=== PATIENT | female | born 1935 | race Two or more races ===

== ENCOUNTER 2020-09-16 13:57 | Inpatient (IN) | payer OTHER ==
[~2020-09-16] VITALS: Ht 304.8 cm; Wt 78.0 kg
[~2020-09-16 13:57] MED LIST: ATOR20TA PO; HYDR-3547 OR; LEVO25TA49 PO; PANT40TA2 PO; RANI-435 PO
[2020-09-16] MEDS ORDERED: MORPHINE SULF INJ 2 MG/ML SYRINGE 1ML IV ONE (14:30)
[2020-09-16] MEDS ORDERED: ONDANSETRON HCL 4 MG/2 ML VIAL IV ONE (14:30)
[2020-09-16 14:37] LABS: Basophils # (auto) 0 10 ^3/uL (0-0.2); Basophils % (auto) 0.9 % (0.0-2.0); Eosinophils # (auto) 0.1 10 ^3/uL (0-0.8); Eosinophils % (auto) 1.6 % (0.0-7.0); Hematocrit 37.8 % (36.0-46.0); Hemoglobin 13.1 g/dL (12.2-16.2); Lymphocytes # (auto) 2.5 10 ^3/uL (0.4-5.4); Lymphocytes % (auto) 46.8 % (10.0-50.0); Mean Corpuscular Hgb Conc. 34.6 g/dL (32.0-36.0); Mean Corpuscular Volume 92.5 fL (80.0-100.0); Monocytes # (auto) 0.4 10 ^3/uL (0-1.3); Neutrophils # (auto) 2.3 10 ^3/uL (1.6-8.6); Neutrophils % (auto) 43.7 % (37.0-80.0); Nucleated Red Blood Cells % 0.1 %; Platelet Count (auto) 168 10^3/uL (140-450); Red Blood Cells 4.08 10^6/uL (4.0-5.20); Red Cell Distribution Width 14.1 % (11.8-14.3); White Blood Cell 5.3 10^3/uL (4.4-10.8)
[2020-09-16 15:10] LABS: Albumin 3.8 g/dL (3.4-5.0); Anion Gap 6 (5-15); Blood Urea Nitrogen 16 mg/dL (7-18); Carbon Dioxide 27 mmol/L (21-32); Chloride 108 mmol/L (98-107); Glucose 106 mg/dL (74-106); Magnesium 2.3 mg/dL (1.6-2.6); Potassium 3.5 mmol/L (3.5-5.1); Sodium 141 mmol/L (136-145)
[2020-09-16 15:16] LABS: Alanine Aminotransferase 19 U/L (13-56); Alkaline Phosphatase 65 U/L (45-117); Aspartate Aminotransferase 14 U/L (15-37); Bilirubin, Total 0.4 mg/dL (0.2-1.0); GFR African American 88 mL/min; GFR Non-African American 73 mL/min; Total Protein 7.5 g/dL (6.4-8.2)
[2020-09-16] MEDS ORDERED: MORPHINE SULFATE 4 MG/ML SYR/VIAL IV ONE (15:45)
[2020-09-16] MEDS ORDERED: hydrALAZINE HCL 20 MG/ML VL IV PRN (17:15)
[2020-09-16] MEDS ORDERED: MORPHINE SULF INJ 2 MG/ML SYRINGE 1ML IV PRN (17:15)
[2020-09-16] MEDS ORDERED: TETANUS-DIPTH-ACEL PERTUSSIS 0.5ML SYR Tdap IM ONE (17:15)
[2020-09-16] MEDS ORDERED: LORazepam 0.5 MG TAB PO PRN (17:15)
[2020-09-16] MEDS ORDERED: DOCUSATE CALCIUM 240 MG CAP PO PRN (17:15)
[2020-09-16] MEDS ORDERED: ONDANSETRON HCL 4 MG/2 ML VIAL IV PRN (17:15)
[2020-09-16] MEDS ORDERED: NITROGLYCERIN 0.4 MG SL TAB SL PRN (17:15)
[2020-09-16] MEDS ORDERED: ACETAMINOPHEN 500 MG TAB PO PRN (17:15)
[2020-09-16 20:15] VITALS: BP 148/75
[2020-09-16] MEDS: MORPHINE SULF INJ 2 MG/ML SYRINGE 1ML IV PRN (20:54)
[2020-09-16 21:58] VITALS: BP 148/75
[2020-09-16 22:08] LABS: Urine Bacteria FEW /hpf (None Seen); Urine Blood Negative /uL (Negative); Urine Mucus FEW (None Seen); Urine Specific Gravity 1.019 (1.001-1.035); Urine WBC 10 /hpf (0 - 5)
[2020-09-17 04:56] VITALS: BP 120/81
[2020-09-17] MEDS: MORPHINE SULF INJ 2 MG/ML SYRINGE 1ML IV PRN ×4 (05:02→23:00)
[2020-09-17 05:45] LABS: Basophils # (auto) 0 10 ^3/uL (0-0.2); Basophils % (auto) 0.7 % (0.0-2.0); Eosinophils # (auto) 0 10 ^3/uL (0-0.8); Eosinophils % (auto) 0.3 % (0.0-7.0); Hematocrit 35.7 % (36.0-46.0); Hemoglobin 12.4 g/dL (12.2-16.2); Lymphocytes # (auto) 1.2 10 ^3/uL (0.4-5.4); Lymphocytes % (auto) 20.2 % (10.0-50.0); Mean Corpuscular Hemoglobin 31.8 pg (28.0-32.0); Mean Corpuscular Hgb Conc. 34.7 g/dL (32.0-36.0); Mean Corpuscular Volume 91.4 fL (80.0-100.0); Monocytes # (auto) 0.5 10 ^3/uL (0-1.3); Monocytes % (auto) 8.4 % (0.0-12.0); Neutrophils # (auto) 4.3 10 ^3/uL (1.6-8.6); Neutrophils % (auto) 70.4 % (37.0-80.0); Nucleated Red Blood Cells % 0.1 %; Platelet Count (auto) 166 10^3/uL (140-450); Red Blood Cells 3.91 10^6/uL (4.0-5.20); Red Cell Distribution Width 13.9 % (11.8-14.3); White Blood Cell 6.1 10^3/uL (4.4-10.8)
[2020-09-17 05:53] LABS: INR 0.98 (0.9-1.15)
[2020-09-17 06:06] LABS: Albumin 3.7 g/dL (3.4-5.0); BUN/Creatinine Ratio 16.2; Calcium 8.7 mg/dL (8.5-10.1)
[2020-09-17 06:15] LABS: Bilirubin, Total 0.6 mg/dL (0.2-1.0); Total Protein 7.1 g/dL (6.4-8.2)
[2020-09-17 09:00] VITALS: BP 108/65
[2020-09-17] MEDS ORDERED: PANTOPRAZOLE 40 MG TAB PO SCH (10:00)
[2020-09-17] MEDS ORDERED: ENOXAPARIN SOD 40 MG/0.4 ML SYRINGE SC SCH (10:00)
[2020-09-17] MEDS ORDERED: HYDROcodone-ACET 5/325MG TAB PO PRN (12:00)
[2020-09-17 13:00] VITALS: BP 117/68
[2020-09-17] MEDS ORDERED: HYDROcodone-ACET 10/325MG TAB PO PRN ×2 (13:30→13:45)
[2020-09-17 17:00] VITALS: BP 141/74
[2020-09-17 22:00] VITALS: BP 142/73
== END 2020-09-18 01:45 | DRG 563 ==
LOC: ER 13:57 → OVERFLOW 17:35 → EAST 20:03 → WEST WING 09-17 05:30
PROVIDERS: ADMIT Family Medicine; ATTEND Internal Medicine
DX: S42.251A Displaced fracture of greater tuberosity of right humerus, initial encounter for closed fracture (principal); Z20.822 Contact with and (suspected) exposure to COVID-19; Y93.01 Activity, walking, marching and hiking; K21.9 Gastro-esophageal reflux disease without esophagitis; E03.9 Hypothyroidism, unspecified; G89.29 Other chronic pain; M54.5 Low back pain; E78.5 Hyperlipidemia, unspecified; W01.0XXA Fall on same level from slipping, tripping and stumbling without subsequent striking against object, initial encounter; K59.00 Constipation, unspecified; G47.00 Insomnia, unspecified; S80.02XA Contusion of left knee, initial encounter; Y92.89 Other specified places as the place of occurrence of the external cause; Y99.8 Other external cause status; Z88.5 Allergy status to narcotic agent; Z88.0 Allergy status to penicillin; Z85.828 Personal history of other malignant neoplasm of skin; Z90.49 Acquired absence of other specified parts of digestive tract; Z79.899 Other long term (current) drug therapy; Z23 Encounter for immunization
CPT/HCPCS: 36415; 73030; 73200; 73562; 80053; 81001; 83735; 84443; 84484; 85025; 85610; 87426; 90471; 90715; 93005; 96374; 96375; 96376; 97163; G0378; J2405

== ENCOUNTER 2020-10-15 20:29 | Inpatient (IN) | payer OTHER ==
[~2020-10-15] VITALS: Ht 152.4 cm; Wt 77.1 kg
[2020-10-15 21:36] LABS: Hematocrit 38.1 % (36.0-46.0); Hemoglobin 12.7 g/dL (12.2-16.2); Mean Corpuscular Hemoglobin 30.4 pg (28.0-32.0); Mean Corpuscular Hgb Conc. 33.3 g/dL (32.0-36.0); Mean Corpuscular Volume 91.3 fL (80.0-100.0); Platelet Count (auto) 322 10^3/uL (140-450); Red Blood Cells 4.17 10^6/uL (4.0-5.20); Red Cell Distribution Width 14.4 % (11.8-14.3); White Blood Cell 5.2 10^3/uL (4.4-10.8)
[2020-10-15 21:42] LABS: Band Neutrophils % (manual) 0; Basophils % (manual) 0 (0.0-2.0); Blast Cells 0; Metamyelocytes % 0; Myelocytes % 0; Promyelocytes % 0; Reactive Lymphocytes 0
[2020-10-15 21:47] LABS: Albumin 3.5 g/dL (3.4-5.0); Anion Gap 9 (5-15); Blood Urea Nitrogen 9 mg/dL (7-18); Calcium 8.9 mg/dL (8.5-10.1); Carbon Dioxide 23 mmol/L (21-32); Chloride 106 mmol/L (98-107); Glucose 113 mg/dL (74-106); Potassium 3.3 mmol/L (3.5-5.1); Sodium 138 mmol/L (136-145)
[2020-10-15 21:54] LABS: INR 0.99 (0.9-1.15); Partial Thromboplastin Time 26.5 sec (23.0-31.2)
[2020-10-15 21:55] LABS: Alanine Aminotransferase 20 U/L (13-56); Alkaline Phosphatase 116 U/L (45-117); Aspartate Aminotransferase 21 U/L (15-37); BUN/Creatinine Ratio 12.9; Bilirubin, Total 0.4 mg/dL (0.2-1.0); GFR African American 103 mL/min; GFR Non-African American 85 mL/min; Total Protein 7.2 g/dL (6.4-8.2)
[2020-10-15] MEDS ORDERED: DOXYCYCLINE 100MG/250ML 250 ML IV ONE (22:30)
[2020-10-15] MEDS ORDERED: DexAMETHasone SOD PHOS 10MG/1ML VIAL INJ IV ONE (22:30)
[2020-10-15] MEDS ORDERED: ASCORBIC ACID 500 MG TAB PO ONE (22:30)
[2020-10-15] MEDS ORDERED: IOHEXOL 350 MG/ML 100ML IJ ONE (22:30)
[2020-10-15] MEDS ORDERED: ZINC SULFATE 220mg CAP or TAB PO ONE (22:30)
[2020-10-15 22:40] LABS: Eosinophils % (manual) 3 (0-7); Lymphocytes % (manual) 36 (10.0-50.0); Monocytes % (manual) 7 (0-12)
[2020-10-15 23:04] LABS: Amylase 38 U/L (25-115); Lipase 142 U/L (73-393)
[2020-10-15] MEDS ORDERED: ONDANSETRON HCL 4 MG/2 ML VIAL IV ONE (23:45)
[2020-10-16] MEDS ORDERED: POTASSIUM CHL 20MEQ/100ML 100 ML IV ONE (00:45)
[2020-10-16] MEDS ORDERED: SODIUM CHLORIDE 0.9% 1,000 ML IV ONE (01:30)
[2020-10-16] MEDS ORDERED: MORPHINE SULFATE 4 MG/ML SYR/VIAL IV ONE ×2 (01:30)
[2020-10-16] MEDS: SODIUM CHLORIDE 0.9% 1,000 ML IV SCH ×2 (05:45→21:14)
[2020-10-16] MEDS ORDERED: MORPHINE SULF INJ 2 MG/ML SYRINGE 1ML IV PRN (05:45)
[2020-10-16] MEDS ORDERED: NITROGLYCERIN 0.4 MG SL TAB SL PRN (05:45)
[2020-10-16] MEDS ORDERED: ACETAMINOPHEN 325 MG TAB PO PRN (05:45)
[2020-10-16] MEDS ORDERED: DOCUSATE SOD 100 MG CAP PO PRN (05:45)
[2020-10-16 07:47] LABS: Basophils # (auto) 0 10 ^3/uL (0-0.2); Eosinophils # (auto) 0 10 ^3/uL (0-0.8); Eosinophils % (auto) 0.1 % (0.0-7.0); Hematocrit 35.9 % (36.0-46.0); Hemoglobin 11.9 g/dL (12.2-16.2); Lymphocytes # (auto) 0.6 10 ^3/uL (0.4-5.4); Lymphocytes % (auto) 18.6 % (10.0-50.0); Mean Corpuscular Hemoglobin 30.2 pg (28.0-32.0); Mean Corpuscular Hgb Conc. 33.2 g/dL (32.0-36.0); Monocytes # (auto) 0.1 10 ^3/uL (0-1.3); Monocytes % (auto) 2.6 % (0.0-12.0); Neutrophils # (auto) 2.4 10 ^3/uL (1.6-8.6); Neutrophils % (auto) 77.7 % (37.0-80.0); Platelet Count (auto) 286 10^3/uL (140-450); Red Blood Cells 3.95 10^6/uL (4.0-5.20); Red Cell Distribution Width 14.5 % (11.8-14.3)
[2020-10-16 08:26] VITALS: BP 108/57
[2020-10-16 08:38] LABS: Albumin 3.1 g/dL (3.4-5.0); Anion Gap 8 (5-15); Blood Urea Nitrogen 9 mg/dL (7-18); Calcium 8.8 mg/dL (8.5-10.1); Carbon Dioxide 23 mmol/L (21-32); Chloride 107 mmol/L (98-107); Glucose 137 mg/dL (74-106); Potassium 4.3 mmol/L (3.5-5.1); Sodium 138 mmol/L (136-145)
[2020-10-16 08:44] LABS: Alanine Aminotransferase 18 U/L (13-56); Alkaline Phosphatase 104 U/L (45-117); Aspartate Aminotransferase 22 U/L (15-37); BUN/Creatinine Ratio 17.3; Bilirubin, Total 0.4 mg/dL (0.2-1.0); GFR African American 145 mL/min; GFR Non-African American 120 mL/min; Total Protein 6.8 g/dL (6.4-8.2)
[2020-10-16] MEDS ORDERED: HYDR-4795 PO (09:00)
[2020-10-16] MEDS ORDERED: ENOXAPARIN SOD 40 MG/0.4 ML SYRINGE SC SCH (10:00)
[2020-10-16] MEDS: FAMOTIDINE 20 MG TAB PO SCH (10:36)
[2020-10-16] MEDS: ASPirin 81 mg TAB PO SCH (10:36)
[2020-10-16] MEDS: MULTIPLE VITAMIN TAB PO SCH (10:36)
[2020-10-16] MEDS: ZINC SULFATE 220mg CAP or TAB PO SCH (10:36)
[2020-10-16] MEDS: ASCORBIC ACID 500 MG TAB PO SCH ×2 (10:37→21:06)
[2020-10-16 12:31] VITALS: BP 127/80
[2020-10-16] MEDS: HYDROcodone-ACET 5/325MG TAB PO PRN ×2 (16:00→21:14)
[2020-10-16] MEDS ORDERED: IOHEXOL 350 MG/ML 100ML IJ ONE (16:12)
[2020-10-16 16:30] VITALS: BP 120/75
[2020-10-16] MEDS: APIXABAN 5 MG TAB PO SCH (21:05)
[2020-10-16] MEDS: ONDANSETRON HCL 4 MG/2 ML VIAL IV PRN (21:06)
[2020-10-16 22:00] VITALS: BP 117/66
[2020-10-17] MEDS: HYDROcodone-ACET 5/325MG TAB PO PRN ×4 (02:54→22:04)
[2020-10-17 05:00] VITALS: BP 95/53
[2020-10-17 06:02] LABS: Basophils # (auto) 0.1 10 ^3/uL (0-0.2); Basophils % (auto) 1.2 % (0.0-2.0); Eosinophils # (auto) 0 10 ^3/uL (0-0.8); Eosinophils % (auto) 0.4 % (0.0-7.0); Hematocrit 32.2 % (36.0-46.0); Hemoglobin 10.8 g/dL (12.2-16.2); Lymphocytes # (auto) 1.5 10 ^3/uL (0.4-5.4); Lymphocytes % (auto) 34.1 % (10.0-50.0); Mean Corpuscular Hemoglobin 30.7 pg (28.0-32.0); Mean Corpuscular Hgb Conc. 33.6 g/dL (32.0-36.0); Mean Corpuscular Volume 91.5 fL (80.0-100.0); Monocytes # (auto) 0.3 10 ^3/uL (0-1.3); Monocytes % (auto) 7.6 % (0.0-12.0); Neutrophils # (auto) 2.4 10 ^3/uL (1.6-8.6); Neutrophils % (auto) 56.7 % (37.0-80.0); Nucleated Red Blood Cells % 0.3 %; Platelet Count (auto) 259 10^3/uL (140-450); Red Blood Cells 3.51 10^6/uL (4.0-5.20); Red Cell Distribution Width 14.4 % (11.8-14.3); White Blood Cell 4.3 10^3/uL (4.4-10.8)
[2020-10-17 06:19] LABS: Calcium 8.6 mg/dL (8.5-10.1); Magnesium 2.3 mg/dL (1.6-2.6); Potassium 3.9 mmol/L (3.5-5.1)
[2020-10-17 06:23] LABS: BUN/Creatinine Ratio 15.4; Bilirubin, Total 0.3 mg/dL (0.2-1.0)
[2020-10-17 09:00] VITALS: BP 129/73
[2020-10-17] MEDS: ASPirin 81 mg TAB PO SCH (09:35)
[2020-10-17] MEDS: MULTIPLE VITAMIN TAB PO SCH (09:36)
[2020-10-17] MEDS: FAMOTIDINE 20 MG TAB PO SCH (09:36)
[2020-10-17] MEDS: ZINC SULFATE 220mg CAP or TAB PO SCH (09:36)
[2020-10-17] MEDS: APIXABAN 5 MG TAB PO SCH ×2 (09:36→21:41)
[2020-10-17] MEDS: ASCORBIC ACID 500 MG TAB PO SCH ×2 (09:36→21:41)
[2020-10-17 12:56] VITALS: BP 100/56
[2020-10-17] MEDS: ONDANSETRON HCL 4 MG/2 ML VIAL IV PRN (13:38)
[2020-10-17] MEDS: SODIUM CHLORIDE 0.9% 1,000 ML IV SCH (15:05)
[2020-10-17 16:52] VITALS: BP 111/71
[2020-10-17 22:00] VITALS: BP 97/58
[2020-10-18] MEDS: HYDROcodone-ACET 5/325MG TAB PO PRN ×2 (02:35→08:47)
[2020-10-18 05:00] VITALS: BP 97/58
[2020-10-18 06:20] LABS: Basophils # (auto) 0.1 10 ^3/uL (0-0.2); Eosinophils # (auto) 0.1 10 ^3/uL (0-0.8); Eosinophils % (auto) 2.9 % (0.0-7.0); Hematocrit 32.1 % (36.0-46.0); Hemoglobin 10.9 g/dL (12.2-16.2); Lymphocytes # (auto) 1.4 10 ^3/uL (0.4-5.4); Lymphocytes % (auto) 37.9 % (10.0-50.0); Mean Corpuscular Hemoglobin 30.9 pg (28.0-32.0); Mean Corpuscular Hgb Conc. 33.9 g/dL (32.0-36.0); Monocytes # (auto) 0.3 10 ^3/uL (0-1.3); Monocytes % (auto) 7.7 % (0.0-12.0); Neutrophils # (auto) 1.8 10 ^3/uL (1.6-8.6); Neutrophils % (auto) 49.5 % (37.0-80.0); Nucleated Red Blood Cells % 0.1 %; Platelet Count (auto) 231 10^3/uL (140-450); Red Blood Cells 3.53 10^6/uL (4.0-5.20); Red Cell Distribution Width 14.5 % (11.8-14.3); White Blood Cell 3.7 10^3/uL (4.4-10.8)
[2020-10-18 06:37] LABS: Potassium 3.9 mmol/L (3.5-5.1)
[2020-10-18 06:39] LABS: BUN/Creatinine Ratio 11.6; Calcium 8.8 mg/dL (8.5-10.1); Magnesium 2.3 mg/dL (1.6-2.6)
[2020-10-18] MEDS: ZINC SULFATE 220mg CAP or TAB PO SCH (08:47)
[2020-10-18] MEDS: APIXABAN 5 MG TAB PO SCH ×2 (08:47→22:37)
[2020-10-18] MEDS: MULTIPLE VITAMIN TAB PO SCH (08:47)
[2020-10-18] MEDS: ONDANSETRON HCL 4 MG/2 ML VIAL IV PRN ×2 (08:47→15:19)
[2020-10-18] MEDS: ASPirin 81 mg TAB PO SCH (08:47)
[2020-10-18] MEDS: ASCORBIC ACID 500 MG TAB PO SCH ×2 (08:47→22:36)
[2020-10-18] MEDS: FAMOTIDINE 20 MG TAB PO SCH (08:48)
[2020-10-18] MEDS: SODIUM CHLORIDE 0.9% 1,000 ML IV SCH (08:55)
[2020-10-18 09:00] VITALS: BP 121/73
[2020-10-18 12:57] VITALS: BP 106/64
[2020-10-18 17:00] VITALS: BP 124/63
[2020-10-18] MEDS: MORPHINE SULFATE 4 MG/ML SYR/VIAL IV PRN ×2 (17:02→22:37)
[2020-10-18 19:39] VITALS: BP 123/73
[2020-10-18 22:00] VITALS: BP 123/72
[2020-10-19] MEDS: SODIUM CHLORIDE 0.9% 1,000 ML IV SCH ×2 (00:25→15:49)
[2020-10-19] MEDS: HYDROcodone-ACET 5/325MG TAB PO PRN ×3 (04:24→17:53)
[2020-10-19 05:00] VITALS: BP 107/57
[2020-10-19] MEDS: MULTIPLE VITAMIN TAB PO SCH (08:50)
[2020-10-19] MEDS: ONDANSETRON HCL 4 MG/2 ML VIAL IV PRN (08:50)
[2020-10-19] MEDS: ZINC SULFATE 220mg CAP or TAB PO SCH (08:50)
[2020-10-19] MEDS: ASPirin 81 mg TAB PO SCH (08:50)
[2020-10-19] MEDS: APIXABAN 5 MG TAB PO SCH (08:51)
[2020-10-19] MEDS: ASCORBIC ACID 500 MG TAB PO SCH (08:51)
[2020-10-19] MEDS: FAMOTIDINE 20 MG TAB PO SCH (08:51)
[2020-10-19 09:00] VITALS: BP 103/74
[2020-10-19 13:00] VITALS: BP 118/57
[2020-10-19] MEDS ORDERED: ONDANSETRON ODT 4 MG TAB PO ONE (15:15)
[2020-10-19 16:54] VITALS: BP 106/65
== END 2020-10-19 18:58 | disposition home health service (06) | DRG 175 ==
LOC: ER 20:29 → TELE 10-16 05:38 → TELE-EAST 10-16 08:24
PROVIDERS: ADMIT Nurse Practitioner Family; ATTEND Internal Medicine
DX: I26.94 Multiple subsegmental thrombotic pulmonary emboli without acute cor pulmonale (principal); J96.01 Acute respiratory failure with hypoxia; K52.9 Noninfective gastroenteritis and colitis, unspecified; E87.6 Hypokalemia; K21.9 Gastro-esophageal reflux disease without esophagitis; E03.9 Hypothyroidism, unspecified; Z20.822 Contact with and (suspected) exposure to COVID-19; T41.45XA Adverse effect of unspecified anesthetic, initial encounter; Z53.20 Procedure and treatment not carried out because of patient's decision for unspecified reasons; E78.5 Hyperlipidemia, unspecified; Z79.01 Long term (current) use of anticoagulants; Z85.828 Personal history of other malignant neoplasm of skin; Z85.850 Personal history of malignant neoplasm of thyroid; Z90.49 Acquired absence of other specified parts of digestive tract; Y92.89 Other specified places as the place of occurrence of the external cause; Z88.0 Allergy status to penicillin; Z88.5 Allergy status to narcotic agent; Z88.8 Allergy status to other drugs, medicaments and biological substances
CPT/HCPCS: 36415; 36600; 71250; 71275; 74176; 80048; 80053; 82150; 82805; 83036; 83605; 83690; 83735; 83880; 84484; 85007; 85025; 85027; 85379; 85610; 85730; 87081; 87426; 93005; 93970; 96361; 96374; 96375; G0378; J1100; J2405; J3480; J3490; Q0162

== ENCOUNTER 2021-10-19 14:31 | Emergency (ER) | payer OTHER ==
[~2021-10-19] VITALS: Ht 154.9 cm; Wt 68.0 kg
[~2021-10-19 14:31] MED LIST changes: -HYDR-3547 OR; +HYDR-4795 PO; -RANI-435 PO
[2021-10-19] MEDS ORDERED: SODIUM CHLORIDE 0.9% 1,000 ML IV ONE (16:45)
[2021-10-19 17:03] LABS: Urine Bacteria FEW /hpf (None Seen); Urine Blood Negative /uL (Negative); Urine Mucus FEW (None Seen); Urine WBC 12 /hpf (0 - 5)
[2021-10-19] MEDS ORDERED: cefTRIAXone 1GM/50ML D5W 50 ML IV ONE (17:30)
[2021-10-19 17:51] LABS: Calcium 9.5 mg/dL (8.5-10.1); Magnesium 2.4 mg/dL (1.6-2.6); Potassium 4.3 mmol/L (3.5-5.1)
[2021-10-19 17:56] LABS: Basophils # (auto) 0.1 10 ^3/uL (0-0.2); Basophils % (auto) 0.9 % (0.0-2.0); Eosinophils # (auto) 0 10 ^3/uL (0-0.8); Eosinophils % (auto) 0.7 % (0.0-7.0); Hematocrit 36.4 % (36.0-46.0); Hemoglobin 12.4 g/dL (12.2-16.2); Lymphocytes # (auto) 1.8 10 ^3/uL (0.4-5.4); Lymphocytes % (auto) 30.7 % (10.0-50.0); Mean Corpuscular Hgb Conc. 34.2 g/dL (32.0-36.0); Mean Corpuscular Volume 90.7 fL (80.0-100.0); Monocytes # (auto) 0.3 10 ^3/uL (0-1.3); Neutrophils # (auto) 3.7 10 ^3/uL (1.6-8.6); Neutrophils % (auto) 62.7 % (37.0-80.0); Nucleated Red Blood Cells % 0.1 %; Red Blood Cells 4.01 10^6/uL (4.0-5.20); Red Cell Distribution Width 13.6 % (11.8-14.3); White Blood Cell 5.8 10^3/uL (4.4-10.8)
[2021-10-19 17:57] LABS: BUN/Creatinine Ratio 18.3; Bilirubin, Total 0.3 mg/dL (0.2-1.0); Total Protein 7.8 g/dL (6.4-8.2)
[2021-10-19] MEDS ORDERED: cefTRIAXone SOD 1,000 MG VL ONE (18:44)
[2021-10-19] MEDS ORDERED: cefTRIAXone SOD 1,000 MG VL IM ONE (18:45)
[2021-10-19 18:51] VITALS: BP 125/78
[2021-10-20] MEDS ORDERED: CYCL-837 PO (14:28)
[2021-10-20] MEDS ORDERED: TRAM50TA2 PO (14:28)
[2021-10-20] MEDS ORDERED: CIPR-173 PO (14:28)
[2021-10-20] MEDS ORDERED: IBUP200C14 PO (14:28)
== END 2021-10-19 19:03 | disposition home or self-care (01) ==
LOC: ER 14:31
DX: S32.000A Wedge compression fracture of unspecified lumbar vertebra, initial encounter for closed fracture (principal); M47.816 Spondylosis without myelopathy or radiculopathy, lumbar region; K21.9 Gastro-esophageal reflux disease without esophagitis; Z88.0 Allergy status to penicillin; W01.0XXA Fall on same level from slipping, tripping and stumbling without subsequent striking against object, initial encounter; Y93.89 Activity, other specified; Y92.098 Other place in other non-institutional residence as the place of occurrence of the external cause; Y99.8 Other external cause status
CPT/HCPCS: 36415; 72131; 80053; 81001; 83735; 85025; 96372; 99284; J0696

== ENCOUNTER 2022-11-25 15:22 | Emergency (ER) | payer OTHER ==
[~2022-11-25] VITALS: Ht 152.4 cm; Wt 68.1 kg
[~2022-11-25 15:22] MED LIST changes: +CIPR-173 PO; +CYCL-837 PO; +IBUP200C14 PO; +TRAM50TA2 PO
[2022-11-25 15:47] VITALS: BP 120/78
[2022-11-25 16:08] LABS: Basophils # (auto) 0.1 10 ^3/uL (0-0.2); Basophils % (auto) 0.8 % (0.0-2.0); Eosinophils # (auto) 0.1 10 ^3/uL (0-0.8); Eosinophils % (auto) 1.5 % (0.0-7.0); Hematocrit 39.5 % (36.0-46.0); Hemoglobin 13.7 g/dL (12.2-16.2); Lymphocytes # (auto) 1.7 10 ^3/uL (0.4-5.4); Mean Corpuscular Hemoglobin 32.1 pg (28.0-32.0); Mean Corpuscular Hgb Conc. 34.8 g/dL (32.0-36.0); Mean Corpuscular Volume 92.4 fL (80.0-100.0); Monocytes # (auto) 0.7 10 ^3/uL (0-1.3); Neutrophils # (auto) 4.1 10 ^3/uL (1.6-8.6); Neutrophils % (auto) 61.7 % (37.0-80.0); Nucleated Red Blood Cells % 0.2 %; Red Blood Cells 4.28 10^6/uL (4.0-5.20); Red Cell Distribution Width 14.2 % (11.8-14.3); White Blood Cell 6.6 10^3/uL (4.4-10.8)
[2022-11-25 16:28] LABS: Urine Bacteria MOD /hpf (None Seen); Urine Blood Negative /uL (Negative); Urine Mucus FEW (None Seen); Urine Specific Gravity 1.027 (1.001-1.035); Urine WBC 39 /hpf (0 - 5)
[2022-11-25 16:29] LABS: Albumin 3.8 g/dL (3.4-5.0); Calcium 9.5 mg/dL (8.5-10.1)
[2022-11-25 16:32] LABS: BUN/Creatinine Ratio 16.7 (10.0-20.0); Bilirubin, Total 0.4 mg/dL (0.2-1.0); Total Protein 9.3 g/dL (6.4-8.2)
[2022-11-25] MEDS ORDERED: cefTRIAXone SOD 1,000 MG VL IM ONE (17:15)
[2022-11-25] MEDS ORDERED: ACETAMINOPHEN 500 MG TAB PO ONE (17:15)
[2022-11-25] MEDS ORDERED: PHEN-922 PO (18:01)
[2022-11-25] MEDS ORDERED: CIPR-173 PO (18:01)
[2022-12-01] MEDS ORDERED: SENN-105 PO (12:31)
== END 2022-11-25 18:30 | disposition home or self-care (01) ==
LOC: ER 15:22
DX: N39.0 Urinary tract infection, site not specified (principal); K80.20 Calculus of gallbladder without cholecystitis without obstruction; M54.59 Other low back pain; G89.29 Other chronic pain; K21.9 Gastro-esophageal reflux disease without esophagitis; Z90.89 Acquired absence of other organs; Z88.5 Allergy status to narcotic agent; Z88.8 Allergy status to other drugs, medicaments and biological substances; Z88.0 Allergy status to penicillin
CPT/HCPCS: 36415; 74176; 80053; 81001; 85025; 96372; 99285; J0696

== ENCOUNTER 2022-11-26 07:21 | Inpatient (IN) | payer OTHER ==
[~2022-11-26] VITALS: Ht 165.1 cm; Wt 71.4 kg
[~2022-11-26 07:21] MED LIST changes: +PHEN200T16 PO
[2022-11-26 08:05] LABS: Basophils # (auto) 0 10 ^3/uL (0-0.2); Basophils % (auto) 0.3 % (0.0-2.0); Eosinophils # (auto) 0.1 10 ^3/uL (0-0.8); Eosinophils % (auto) 0.9 % (0.0-7.0); Hematocrit 39.9 % (36.0-46.0); Hemoglobin 13.8 g/dL (12.2-16.2); Lymphocytes # (auto) 0.6 10 ^3/uL (0.4-5.4); Lymphocytes % (auto) 9.4 % (10.0-50.0); Mean Corpuscular Hemoglobin 32.5 pg (28.0-32.0); Mean Corpuscular Hgb Conc. 34.6 g/dL (32.0-36.0); Mean Corpuscular Volume 93.9 fL (80.0-100.0); Monocytes # (auto) 0.3 10 ^3/uL (0-1.3); Monocytes % (auto) 4.4 % (0.0-12.0); Neutrophils # (auto) 5.8 10 ^3/uL (1.6-8.6); Nucleated Red Blood Cells % 0.1 %; Red Blood Cells 4.25 10^6/uL (4.0-5.20); Red Cell Distribution Width 14.3 % (11.8-14.3); White Blood Cell 6.9 10^3/uL (4.4-10.8)
[2022-11-26 08:39] LABS: Albumin 3.9 g/dL (3.4-5.0); Calcium 9.7 mg/dL (8.5-10.1); Potassium 4.1 mmol/L (3.5-5.1)
[2022-11-26 08:42] LABS: BUN/Creatinine Ratio 18.9 (10.0-20.0); Bilirubin, Total 0.7 mg/dL (0.2-1.0)
[2022-11-26] MEDS ORDERED: HYDROcodone-ACET 5/325MG TAB PO ONE (09:00)
[2022-11-26] MEDS ORDERED: cefTRIAXone 1GM/50ML D5W 50 ML IV ONE (09:00)
[2022-11-26] MEDS ORDERED: ONDANSETRON HCL 4 MG/2 ML VIAL IV ONE (10:15)
[2022-11-26] MEDS ORDERED: ONDANSETRON HCL 4 MG/2 ML VIAL ONE (10:15)
[2022-11-26] MEDS ORDERED: METOCLOPRAMIDE HCL 5MG/ml INJ 2ml VIAL IV ONE (10:45)
[2022-11-26] MEDS ORDERED: LACTATED RINGER'S 1,000 ML IV ONE (11:15)
[2022-11-26] MEDS ORDERED: KETOROLAC TROMETH 30 MG/ML 1ML VIAL IV ONE (12:15)
[2022-11-26] MEDS ORDERED: NITROGLYCERIN 0.4 MG SL TAB SL PRN (12:45)
[2022-11-26] MEDS: KETOROLAC TROMETH 30 MG/ML 1ML VIAL IV PRN ×2 (17:17→23:20)
[2022-11-26 17:54] LABS: Urine Bacteria FEW /hpf (None Seen); Urine Blood Negative /uL (Negative); Urine Hyaline Cast MANY /lpf (0 - 2); Urine Mucus FEW (None Seen); Urine Specific Gravity 1.041 (1.001-1.035); Urine WBC 27 /hpf (0 - 5)
[2022-11-26] MEDS: PROMETHAZINE HCL 25 MG/ML 1ML IV PRN (18:54)
[2022-11-26] MEDS: PANTOPRAZOLE 40 MG TAB PO SCH (22:53)
[2022-11-27 09:25] LABS: Basophils # (auto) 0 10 ^3/uL (0-0.2); Basophils % (auto) 0.4 % (0.0-2.0); Eosinophils # (auto) 0 10 ^3/uL (0-0.8); Eosinophils % (auto) 0.7 % (0.0-7.0); Hematocrit 40.5 % (36.0-46.0); Hemoglobin 13.8 g/dL (12.2-16.2); Lymphocytes # (auto) 0.7 10 ^3/uL (0.4-5.4); Mean Corpuscular Hemoglobin 31.9 pg (28.0-32.0); Monocytes # (auto) 0.5 10 ^3/uL (0-1.3); Monocytes % (auto) 8.9 % (0.0-12.0); Neutrophils # (auto) 4.5 10 ^3/uL (1.6-8.6); Red Blood Cells 4.31 10^6/uL (4.0-5.20); Red Cell Distribution Width 14.2 % (11.8-14.3); White Blood Cell 5.8 10^3/uL (4.4-10.8)
[2022-11-27] MEDS: KETOROLAC TROMETH 30 MG/ML 1ML VIAL IV PRN ×2 (09:47→17:43)
[2022-11-27] MEDS: ATORVASTATIN 20 MG TAB PO SCH (09:47)
[2022-11-27] MEDS: LEVOTHYROXINE SODIUM 25 MCG TAB PO SCH (09:47)
[2022-11-27] MEDS: PANTOPRAZOLE 40 MG TAB PO SCH ×2 (09:47→21:47)
[2022-11-27] MEDS ORDERED: levoFLOXacin 500MG 100 ML IV SCH (10:00)
[2022-11-27 10:39] LABS: Calcium 9.9 mg/dL (8.5-10.1)
[2022-11-27 10:41] LABS: BUN/Creatinine Ratio 26.2 (10.0-20.0)
[2022-11-27] MEDS: SODIUM CHLORIDE 0.9% 1,000 ML IV SCH (12:24)
[2022-11-27] MEDS: LIDOCAINE 5% TOPICAL PATCH TOP SCH (15:25)
[2022-11-27 15:59] VITALS: BP 162/78
[2022-11-27 16:39] VITALS: BP 161/85
[2022-11-27 22:00] VITALS: BP 116/73
[2022-11-28] MEDS ORDERED: ACETAMINOPHEN 325 MG TAB PO PRN (00:15)
[2022-11-28] MEDS: KETOROLAC TROMETH 30 MG/ML 1ML VIAL IV PRN (00:19)
[2022-11-28] MEDS: HYDROcodone-ACET 5/325MG TAB PO PRN ×2 (03:11→11:20)
[2022-11-28] MEDS: SODIUM CHLORIDE 0.9% 1,000 ML IV SCH ×2 (04:55→21:07)
[2022-11-28 05:11] VITALS: BP 118/55
[2022-11-28 06:13] LABS: BUN/Creatinine Ratio 28.9 (10.0-20.0); Calcium 9.9 mg/dL (8.5-10.1); Potassium 3.9 mmol/L (3.5-5.1)
[2022-11-28 09:00] VITALS: BP 106/52
[2022-11-28] MEDS: LIDOCAINE 5% TOPICAL PATCH TOP SCH (09:54)
[2022-11-28] MEDS: LEVOTHYROXINE SODIUM 25 MCG TAB PO SCH (09:54)
[2022-11-28] MEDS: PANTOPRAZOLE 40 MG TAB PO SCH ×2 (09:54→21:06)
[2022-11-28] MEDS: ATORVASTATIN 20 MG TAB PO SCH (09:55)
[2022-11-28] MEDS ORDERED: levoFLOXacin 250MG 50 ML IV SCH (10:00)
[2022-11-28 13:00] VITALS: BP 104/64
[2022-11-28] MEDS ORDERED: levoFLOXacin 250MG 50 ML IV ONE (15:45)
[2022-11-28 17:00] VITALS: BP 137/68
[2022-11-28] MEDS: CELECOXIB 100 MG CAP PO SCH (21:05)
[2022-11-28] MEDS: DULoxetine HCL 30 MG CAP PO SCH (21:05)
[2022-11-28] MEDS: OXYCODONE W/ ACETAMINOPHEN 5/325MG TABLET PO PRN (21:06)
[2022-11-28] MEDS: DexAMETHasone SOD PHOS 4 MG/1ML SDV INJ IV SCH (21:06)
[2022-11-28] MEDS: SENNA 8.6 MG TAB PO SCH (21:07)
[2022-11-28 22:00] VITALS: BP 121/56
[2022-11-29 05:00] VITALS: BP 112/69
[2022-11-29] MEDS: DexAMETHasone SOD PHOS 4 MG/1ML SDV INJ IV SCH ×3 (05:18→21:16)
[2022-11-29 09:00] VITALS: BP 116/61
[2022-11-29] MEDS: levoFLOXacin 500MG 100 ML IV SCH (09:30)
[2022-11-29] MEDS: ATORVASTATIN 20 MG TAB PO SCH (09:31)
[2022-11-29] MEDS: PANTOPRAZOLE 40 MG TAB PO SCH ×2 (09:31→21:16)
[2022-11-29] MEDS: LEVOTHYROXINE SODIUM 25 MCG TAB PO SCH (09:31)
[2022-11-29] MEDS: DULoxetine HCL 30 MG CAP PO SCH ×2 (09:34→21:16)
[2022-11-29] MEDS: CELECOXIB 100 MG CAP PO SCH ×2 (09:34→21:15)
[2022-11-29] MEDS: LIDOCAINE 5% TOPICAL PATCH TOP SCH (09:38)
[2022-11-29] MEDS: OXYCODONE W/ ACETAMINOPHEN 5/325MG TABLET PO PRN ×3 (09:44→21:28)
[2022-11-29 13:00] VITALS: BP 110/59
[2022-11-29] MEDS: SODIUM CHLORIDE 0.9% 1,000 ML IV SCH ×2 (14:15→21:16)
[2022-11-29] MEDS ORDERED: APIX5TAB PO (14:44)
[2022-11-29 17:00] VITALS: BP 135/71
[2022-11-29] MEDS: SENNA 8.6 MG TAB PO SCH (21:16)
[2022-11-29] MEDS: APIXABAN 5 MG TAB PO SCH (21:16)
[2022-11-29 22:00] VITALS: BP 133/63
[2022-11-30] VITALS (7 sets, daily range): BP systolic 108–157; BP diastolic 52–83
[2022-11-30] MEDS: PROMETHAZINE HCL 25 MG/ML 1ML IV PRN (02:24)
[2022-11-30] MEDS: DexAMETHasone SOD PHOS 4 MG/1ML SDV INJ IV SCH ×3 (05:55→21:30)
[2022-11-30] MEDS: ATORVASTATIN 20 MG TAB PO SCH (09:26)
[2022-11-30] MEDS: LIDOCAINE 5% TOPICAL PATCH TOP SCH (09:26)
[2022-11-30] MEDS: levoFLOXacin 500MG 100 ML IV SCH (09:26)
[2022-11-30] MEDS: APIXABAN 5 MG TAB PO SCH ×2 (09:26→21:31)
[2022-11-30] MEDS: PANTOPRAZOLE 40 MG TAB PO SCH ×2 (09:27→21:31)
[2022-11-30] MEDS: DULoxetine HCL 30 MG CAP PO SCH ×2 (09:27→21:30)
[2022-11-30] MEDS: CELECOXIB 100 MG CAP PO SCH ×2 (09:27→21:32)
[2022-11-30] MEDS: LEVOTHYROXINE SODIUM 25 MCG TAB PO SCH (09:27)
[2022-11-30] MEDS: OXYCODONE W/ ACETAMINOPHEN 5/325MG TABLET PO PRN ×3 (09:27→21:32)
[2022-11-30] MEDS: SENNA 8.6 MG TAB PO SCH (21:31)
[2022-11-30] MEDS: SODIUM CHLORIDE 0.9% 1,000 ML IV SCH (23:35)
[2022-12-01 05:00] VITALS: BP 143/47
[2022-12-01] MEDS: DexAMETHasone SOD PHOS 4 MG/1ML SDV INJ IV SCH ×2 (06:40→14:51)
[2022-12-01] MEDS: PROMETHAZINE HCL 25 MG/ML 1ML IV PRN (06:44)
[2022-12-01 08:00] VITALS: BP 137/69
[2022-12-01] MEDS ORDERED: fentaNYL CITRATE 100 MCG/2 ML VL IV ONE (09:15)
[2022-12-01] MEDS: APIXABAN 5 MG TAB PO SCH (10:00)
[2022-12-01] MEDS ORDERED: levoFLOXacin 250MG 50 ML IV SCH (10:00)
[2022-12-01 10:13] LABS: INR 1.04 (0.9-1.15); Partial Thromboplastin Time 27.3 sec (24.6-33.4)
[2022-12-01] MEDS: ATORVASTATIN 20 MG TAB PO SCH (10:24)
[2022-12-01] MEDS: CELECOXIB 100 MG CAP PO SCH (10:24)
[2022-12-01] MEDS: PANTOPRAZOLE 40 MG TAB PO SCH (10:24)
[2022-12-01] MEDS: DULoxetine HCL 30 MG CAP PO SCH (10:24)
[2022-12-01] MEDS: LEVOTHYROXINE SODIUM 25 MCG TAB PO SCH (10:25)
[2022-12-01] MEDS: LIDOCAINE 5% TOPICAL PATCH TOP SCH (10:25)
[2022-12-01] MEDS ORDERED: LIDOCAINE 2%HCL (LOCAL ANESTH.) INJ 10ml MDV ONE (10:59)
[2022-12-01] MEDS ORDERED: TRAM50TA2 PO (12:31)
[2022-12-01] MEDS ORDERED: LIDO5DIS21 TOP (12:31)
[2022-12-01] MEDS ORDERED: SENN-83 PO (12:31)
[2022-12-01] MEDS ORDERED: HYDR-4795 PO (12:31)
[2022-12-01 13:00] VITALS: BP 126/52
[2022-12-01 13:54] VITALS: BP 126/52
[2022-12-01] MEDS: OXYCODONE W/ ACETAMINOPHEN 5/325MG TABLET PO PRN (14:50)
[2022-12-01 16:28] VITALS: BP 133/70
[2022-12-02 07:06] LABS: Immunoglobulin G, Serum 514 mg/dL (586-1602)
== END 2022-12-01 17:20 | disposition home or self-care (01) | DRG 543 ==
LOC: ER 07:21 → EDBD 07:21 → OVERFLOW 12:46 → EAST 11-27 15:53
PROVIDERS: ADMIT Hospitalist; ATTEND Hospitalist
PROC: 079T3ZX Drainage of Bone Marrow, Percutaneous Approach, Diagnostic (ICD-10-PCS; principal; 2022-12-01)
DX: M48.54XA Collapsed vertebra, not elsewhere classified, thoracic region, initial encounter for fracture (principal); N39.0 Urinary tract infection, site not specified; M51.36 Other intervertebral disc degeneration, lumbar region; K80.20 Calculus of gallbladder without cholecystitis without obstruction; M19.90 Unspecified osteoarthritis, unspecified site; G89.29 Other chronic pain; K21.9 Gastro-esophageal reflux disease without esophagitis; M54.30 Sciatica, unspecified side; Z88.5 Allergy status to narcotic agent; Z90.49 Acquired absence of other specified parts of digestive tract; Z88.0 Allergy status to penicillin; Z88.8 Allergy status to other drugs, medicaments and biological substances
CPT/HCPCS: 36415; 72148; 72192; 76705; 78306; 80048; 80053; 81001; 82784; 83615; 83690; 83883; 84155; 84156; 84165; 84166; 84484; 85025; 85610; 85730; 86334; 87086; 93005; 96365; 96375; 97110; 97116; 97163; 97530; G0378; J0696; J1100; J1885; J1956; J2001; J2405

== ENCOUNTER 2022-12-04 05:34 | Emergency (ER) | payer OTHER ==
[~2022-12-04] VITALS: Ht 170.2 cm; Wt 71.0 kg
[~2022-12-04 05:34] MED LIST changes: +APIX5TAB PO; -CIPR-173 PO; -IBUP200C14 PO; +LIDO5DIS21 TOP; -PHEN200T16 PO; +SENN-105 PO
[2022-12-04 06:59] LABS: Basophils # (auto) 0 10 ^3/uL (0-0.2); Basophils % (auto) 0.7 % (0.0-2.0); Eosinophils # (auto) 0 10 ^3/uL (0-0.8); Eosinophils % (auto) 0.6 % (0.0-7.0); Hematocrit 38.8 % (36.0-46.0); Hemoglobin 13.4 g/dL (12.2-16.2); Lymphocytes # (auto) 1.7 10 ^3/uL (0.4-5.4); Lymphocytes % (auto) 24.1 % (10.0-50.0); Mean Corpuscular Hemoglobin 31.2 pg (28.0-32.0); Mean Corpuscular Hgb Conc. 34.5 g/dL (32.0-36.0); Mean Corpuscular Volume 90.6 fL (80.0-100.0); Monocytes # (auto) 0.6 10 ^3/uL (0-1.3); Neutrophils # (auto) 4.7 10 ^3/uL (1.6-8.6); Neutrophils % (auto) 65.6 % (37.0-80.0); Nucleated Red Blood Cells % 0.1 %; Red Blood Cells 4.29 10^6/uL (4.0-5.20); Red Cell Distribution Width 13.8 % (11.8-14.3); White Blood Cell 7.2 10^3/uL (4.4-10.8)
[2022-12-04 07:13] LABS: Albumin 3.2 g/dL (3.4-5.0); Calcium 8.7 mg/dL (8.5-10.1); Potassium 3.3 mmol/L (3.5-5.1)
[2022-12-04 07:16] LABS: BUN/Creatinine Ratio 33.3 (10.0-20.0); Bilirubin, Total 0.8 mg/dL (0.2-1.0); Total Protein 7.3 g/dL (6.4-8.2)
[2022-12-04] MEDS ORDERED: ONDANSETRON HCL 4 MG/2 ML VIAL IV ONE ×2 (07:30→14:15)
[2022-12-04] MEDS ORDERED: MORPHINE SULFATE 4 MG/ML SYR/VIAL IV ONE ×2 (07:30→14:15)
[2022-12-04] MEDS ORDERED: SODIUM CHLORIDE 0.9% 1,000 ML IV ONE (08:45)
[2022-12-04 10:19] LABS: Urine Bacteria FEW /hpf (None Seen); Urine Blood 1+ /uL (Negative); Urine Mucus FEW (None Seen); Urine Specific Gravity 1.029 (1.001-1.035); Urine WBC 3 /hpf (0 - 5)
[2022-12-04] MEDS ORDERED: POTASSIUM CHL 20MEQ/100ML 100 ML IV ONE (11:15)
[2022-12-04] MEDS ORDERED: MILK OF MAGNESIA 30ML SUSP PO ONE (12:00)
[2022-12-04 15:10] VITALS: BP 128/78
== END 2022-12-04 15:13 | disposition home or self-care (01) ==
LOC: ER 05:34 → EDBD 05:34 → ER 15:13
DX: K82.9 Disease of gallbladder, unspecified (principal); R10.31 Right lower quadrant pain; K21.9 Gastro-esophageal reflux disease without esophagitis; Z88.5 Allergy status to narcotic agent; Z88.0 Allergy status to penicillin; Z88.8 Allergy status to other drugs, medicaments and biological substances; Z79.899 Other long term (current) drug therapy; Z90.49 Acquired absence of other specified parts of digestive tract
CPT/HCPCS: 36415; 51702; 74176; 80053; 81001; 83690; 85025; 93005; 96361; 96365; 96366; 96375; 96376; 99285; J2270; J2405; J3480; J7030

== ENCOUNTER 2023-03-29 10:50 | Inpatient (IN) | payer OTHER ==
[~2023-03-29] VITALS: Ht 152.4 cm; Wt 64.0 kg
[2023-03-29] MEDS ORDERED: SODIUM CHLORIDE 0.9% 250 ML IV ONE (11:30)
[2023-03-29 11:56] LABS: Basophils # (auto) 0.1 10 ^3/uL (0-0.2); Eosinophils # (auto) 0 10 ^3/uL (0-0.8); Eosinophils % (auto) 0.6 % (0.0-7.0); Hematocrit 44.6 % (36.0-46.0); Hemoglobin 14.6 g/dL (12.2-16.2); Lymphocytes # (auto) 1.2 10 ^3/uL (0.4-5.4); Lymphocytes % (auto) 16.7 % (10.0-50.0); Mean Corpuscular Hemoglobin 30.8 pg (28.0-32.0); Mean Corpuscular Hgb Conc. 32.8 g/dL (32.0-36.0); Mean Corpuscular Volume 93.9 fL (80.0-100.0); Monocytes # (auto) 0.4 10 ^3/uL (0-1.3); Monocytes % (auto) 5.7 % (0.0-12.0); Neutrophils # (auto) 5.5 10 ^3/uL (1.6-8.6); Nucleated Red Blood Cells % 0.1 %; Red Blood Cells 4.75 10^6/uL (4.0-5.20); Red Cell Distribution Width 15.7 % (11.8-14.3); White Blood Cell 7.2 10^3/uL (4.4-10.8)
[2023-03-29 12:17] LABS: Alanine Aminotransferase 14 U/L (7-40); Albumin 4.4 g/dL (3.2-4.8); Alkaline Phosphatase 143 U/L (46-116); Aspartate Aminotransferase 20 U/L (13-40); BUN/Creatinine Ratio 11.3 (10.0-20.0); Blood Urea Nitrogen 8 mg/dL (9-23); Calcium 9.4 mg/dL (8.5-10.1); Carbon Dioxide 22 mmol/L (20-30); Glucose 102 mg/dL (74-106)
[2023-03-29 12:18] LABS: Bilirubin, Total 0.9 mg/dL (0.2-1.0); Total Protein 6.7 g/dL (5.7-8.2)
[2023-03-29 12:30] VITALS: PULSE 87; RESP 18; O2SAT 98
[2023-03-29] MEDS ORDERED: IOHEXOL 300 MG/ML 100ML BOTTLE IJ ONE (12:30)
[2023-03-29 12:41] LABS: Anion Gap 9 (5-15); Chloride 107 mmol/L (98-107); Potassium 3.9 mmol/L (3.5-5.1); Sodium 138 mmol/L (136-145)
[2023-03-29 13:41] LABS: INR 1.04 (0.9-1.15); Prothrombin Time 10.9 sec (9.3-11.8)
[2023-03-29 19:30] VITALS: PULSE 89; RESP 14; O2SAT 98
[2023-03-29] MEDS ORDERED: SODIUM CHLORIDE 0.9% 1,000 ML IV ONE (21:00)
[2023-03-29] MEDS ORDERED: NITROGLYCERIN 0.4 MG SL TAB SL PRN (21:00)
[2023-03-29] MEDS ORDERED: MORPHINE SULFATE INJ 2 MG/ml SYRG IV PRN (21:00)
[2023-03-29] MEDS ORDERED: IPRATROPIUM BROM 0.5 MG/2.5ML INH SOL NEB PRN (21:00)
[2023-03-29] MEDS ORDERED: HYDROcodone-ACET 5/325MG TAB PO PRN (21:00)
[2023-03-29] MEDS ORDERED: ALBUTEROL SULF 2.5 MG/0.5ML(0.5%) NEB SOLN NEB PRN (21:00)
[2023-03-29 21:55] VITALS: BP 104/56; PULSE 86; RESP 18; TEMP 97.8; O2SAT 96
[2023-03-29 22:22] LABS: Urine Bacteria NONE SEEN /hpf (None Seen); Urine Blood Negative /uL (Negative); Urine Clarity Clear (Clear); Urine Color Yellow (Yellow); Urine Hyaline Cast FEW /lpf (0 - 2); Urine Mucus FEW (None Seen); Urine Protein, UAD TRACE (Negative); Urine Urobilinogen Normal (Negative); Urine WBC 22 /hpf (0 - 5); Urine pH 5.5 (5.0-8.0)
[2023-03-29 22:23] LABS: Urine Specific Gravity > 1.050 (1.001-1.035)
[2023-03-29] MEDS ORDERED: LACTULOSE 20Gm/30ML SOLN PO ONE (22:45)
[2023-03-30] VITALS (10 sets, daily range): BP systolic 96–131; BP diastolic 51–86; PULSE 69–98; RESP 17–19; TEMP 98.2–98.9; O2SAT 93–98
[2023-03-30] MEDS: cefTRIAXone 1GM/50ML D5W 50 ML IV SCH ×2 (00:50→08:53)
[2023-03-30] MEDS: ONDANSETRON HCL 4 MG/2 ML VIAL IV PRN ×3 (04:37→12:55)
[2023-03-30] MEDS: PANTOPRAZOLE 40 MG/10 ML VIAL INJ IV SCH (09:50)
[2023-03-30] MEDS ORDERED: LACTULOSE 20Gm/30ML SOLN PO SCH (10:00)
[2023-03-30] MEDS ORDERED: MAGNESIUM CITRATE SOLUTION 300 ML BTL PO ONE (13:15)
[2023-03-30] MEDS ORDERED: MILK OF MAGNESIA 30ML SUSP PO ONE (14:15)
[2023-03-30] MEDS: MILK OF MAGNESIA 30ML SUSP PO SCH (22:43)
[2023-03-31] VITALS (9 sets, daily range): BP systolic 104–134; BP diastolic 54–77; PULSE 70–106; RESP 12–19; TEMP 96.5–98.7; O2SAT 93–99
[2023-03-31 05:49] LABS: Basophils # (auto) 0 10 ^3/uL (0-0.2); Basophils % (auto) 1.2 % (0.0-2.0); Eosinophils # (auto) 0.3 10 ^3/uL (0-0.8); Eosinophils % (auto) 8.5 % (0.0-7.0); Hematocrit 37.2 % (36.0-46.0); Hemoglobin 12.3 g/dL (12.2-16.2); Lymphocytes # (auto) 0.5 10 ^3/uL (0.4-5.4); Lymphocytes % (auto) 15.9 % (10.0-50.0); Mean Corpuscular Hemoglobin 31.4 pg (28.0-32.0); Mean Corpuscular Hgb Conc. 32.9 g/dL (32.0-36.0); Mean Corpuscular Volume 95.3 fL (80.0-100.0); Monocytes # (auto) 0.2 10 ^3/uL (0-1.3); Monocytes % (auto) 7.4 % (0.0-12.0); Nucleated Red Blood Cells % 0.3 %; Red Blood Cells 3.91 10^6/uL (4.0-5.20); Red Cell Distribution Width 15.7 % (11.8-14.3)
[2023-03-31 05:56] LABS: Anion Gap 9 (5-15); Carbon Dioxide 22 mmol/L (20-30); Chloride 108 mmol/L (98-107); Potassium 3.8 mmol/L (3.5-5.1); Sodium 139 mmol/L (136-145)
[2023-03-31 05:57] LABS: Calcium 8.6 mg/dL (8.7-10.4)
[2023-03-31 06:02] LABS: BUN/Creatinine Ratio 9.5 (10.0-20.0); Blood Urea Nitrogen 6 mg/dL (9-23); Glucose 74 mg/dL (74-106)
[2023-03-31] MEDS: cefTRIAXone 1GM/50ML D5W 50 ML IV SCH (08:57)
[2023-03-31] MEDS: ACETAMINOPHEN 325 MG TAB PO PRN (09:11)
[2023-03-31] MEDS: PANTOPRAZOLE 40 MG/10 ML VIAL INJ IV SCH (09:49)
[2023-03-31] MEDS: MILK OF MAGNESIA 30ML SUSP PO SCH (09:50)
[2023-03-31] MEDS: ONDANSETRON HCL 4 MG/2 ML VIAL IV PRN (12:21)
[2023-03-31] MEDS ORDERED: FLEET MINERAL OIL ENEMA 133 ML PR ONE (13:30)
[2023-03-31] MEDS ORDERED: GOLYTELY 4L KIT PO ONE (13:30)
[2023-03-31] MEDS: SODIUM CHLORIDE 0.9% 1,000 ML IV SCH (13:43)
[2023-04-01] VITALS (8 sets, daily range): BP systolic 136–148; BP diastolic 68–80; PULSE 77–86; RESP 16–20; TEMP 98.1–98.8; O2SAT 96–97
[2023-04-01 05:24] LABS: Basophils # (auto) 0 10 ^3/uL (0-0.2); Basophils % (auto) 0.9 % (0.0-2.0); Eosinophils # (auto) 0.2 10 ^3/uL (0-0.8); Eosinophils % (auto) 9.6 % (0.0-7.0); Hematocrit 37.1 % (36.0-46.0); Hemoglobin 12.7 g/dL (12.2-16.2); Lymphocytes # (auto) 0.5 10 ^3/uL (0.4-5.4); Lymphocytes % (auto) 20.8 % (10.0-50.0); Mean Corpuscular Hemoglobin 31.3 pg (28.0-32.0); Mean Corpuscular Hgb Conc. 34.1 g/dL (32.0-36.0); Mean Corpuscular Volume 91.7 fL (80.0-100.0); Monocytes # (auto) 0.2 10 ^3/uL (0-1.3); Monocytes % (auto) 8.6 % (0.0-12.0); Neutrophils # (auto) 1.6 10 ^3/uL (1.6-8.6); Neutrophils % (auto) 60.1 % (37.0-80.0); Nucleated Red Blood Cells % 0.1 %; Red Blood Cells 4.05 10^6/uL (4.0-5.20); Red Cell Distribution Width 15.1 % (11.8-14.3); White Blood Cell 2.6 10^3/uL (4.4-10.8)
[2023-04-01 05:30] LABS: Calcium 8.9 mg/dL (8.7-10.4); Chloride 107 mmol/L (98-107); Potassium 3.7 mmol/L (3.5-5.1); Sodium 142 mmol/L (136-145)
[2023-04-01 05:31] LABS: Anion Gap 5 (5-15); Carbon Dioxide 30 mmol/L (20-30)
[2023-04-01 05:36] LABS: BUN/Creatinine Ratio 7.7 (10.0-20.0); Blood Urea Nitrogen < 5 mg/dL (9-23); Glucose 85 mg/dL (74-106)
[2023-04-01] MEDS: ACETAMINOPHEN 325 MG TAB PO PRN (09:04)
[2023-04-01] MEDS: cefTRIAXone 1GM/50ML D5W 50 ML IV SCH (09:04)
[2023-04-01] MEDS: PANTOPRAZOLE 40 MG/10 ML VIAL INJ IV SCH (09:04)
[2023-04-01] MEDS: SODIUM CHLORIDE 0.9% 1,000 ML IV SCH ×2 (09:07→23:01)
[2023-04-01] MEDS ORDERED: HYDROcodone-ACET 5/325MG TAB PO PRN (14:00)
[2023-04-01] MEDS: KETOROLAC TROMETH 30 MG/ML 1ML VIAL IV PRN ×2 (14:32→22:17)
[2023-04-01] MEDS: ONDANSETRON HCL 4 MG/2 ML VIAL IV PRN ×2 (18:51→23:01)
[2023-04-01] MEDS: ENOXAPARIN SOD 60 MG/0.6 ML SYRINGE SC SCH (22:17)
[2023-04-02] VITALS (11 sets, daily range): BP systolic 121–150; BP diastolic 68–88; PULSE 70–87; RESP 16–22; TEMP 98–98.6; O2SAT 91–99
[2023-04-02] MEDS: ONDANSETRON HCL 4 MG/2 ML VIAL IV PRN ×2 (03:54→18:45)
[2023-04-02] MEDS: KETOROLAC TROMETH 30 MG/ML 1ML VIAL IV PRN ×3 (04:58→21:27)
[2023-04-02 06:49] LABS: Basophils # (auto) 0 10 ^3/uL (0-0.2); Basophils % (auto) 1.3 % (0.0-2.0); Eosinophils # (auto) 0.3 10 ^3/uL (0-0.8); Eosinophils % (auto) 10.9 % (0.0-7.0); Hematocrit 36.3 % (36.0-46.0); Hemoglobin 12.4 g/dL (12.2-16.2); Lymphocytes # (auto) 0.8 10 ^3/uL (0.4-5.4); Lymphocytes % (auto) 32.2 % (10.0-50.0); Mean Corpuscular Hemoglobin 30.7 pg (28.0-32.0); Mean Corpuscular Hgb Conc. 34.1 g/dL (32.0-36.0); Monocytes # (auto) 0.2 10 ^3/uL (0-1.3); Neutrophils # (auto) 1.1 10 ^3/uL (1.6-8.6); Neutrophils % (auto) 45.6 % (37.0-80.0); Nucleated Red Blood Cells % 0.5 %; Red Blood Cells 4.03 10^6/uL (4.0-5.20); Red Cell Distribution Width 14.8 % (11.8-14.3); White Blood Cell 2.3 10^3/uL (4.4-10.8)
[2023-04-02 06:50] LABS: Anion Gap 8 (5-15); Carbon Dioxide 26 mmol/L (20-30); Chloride 106 mmol/L (98-107); Potassium 3.7 mmol/L (3.5-5.1); Sodium 140 mmol/L (136-145)
[2023-04-02 06:52] LABS: Calcium 8.9 mg/dL (8.7-10.4)
[2023-04-02 06:56] LABS: Glucose 81 mg/dL (74-106)
[2023-04-02 06:58] LABS: BUN/Creatinine Ratio 8.5 (10.0-20.0); Blood Urea Nitrogen < 5 mg/dL (9-23)
[2023-04-02] MEDS: cefTRIAXone 1GM/50ML D5W 50 ML IV SCH (09:29)
[2023-04-02] MEDS: PANTOPRAZOLE 40 MG/10 ML VIAL INJ IV SCH (09:30)
[2023-04-02] MEDS: ENOXAPARIN SOD 60 MG/0.6 ML SYRINGE SC SCH ×2 (09:31→21:26)
[2023-04-02] MEDS: SENNA 8.6 MG TAB PO SCH ×2 (16:26→21:26)
[2023-04-02] MEDS: SODIUM CHLORIDE 0.9% 1,000 ML IV SCH (16:28)
[2023-04-02] MEDS: ACETAMINOPHEN 325 MG TAB PO PRN (16:37)
[2023-04-02] MEDS ORDERED: DOCUSATE SOD 100 MG CAP PO SCH (22:00)
[2023-04-03] VITALS (8 sets, daily range): BP systolic 133–171; BP diastolic 66–90; PULSE 79–88; RESP 15–18; TEMP 97.7–98.4; O2SAT 94–98
[2023-04-03] MEDS: ONDANSETRON HCL 4 MG/2 ML VIAL IV PRN ×3 (01:22→16:59)
[2023-04-03] MEDS: ACETAMINOPHEN 325 MG TAB PO PRN (01:23)
[2023-04-03] MEDS: KETOROLAC TROMETH 30 MG/ML 1ML VIAL IV PRN ×2 (03:09→13:14)
[2023-04-03 06:35] LABS: Basophils # (auto) 0 10 ^3/uL (0-0.2); Basophils % (auto) 1.5 % (0.0-2.0); Eosinophils # (auto) 0.2 10 ^3/uL (0-0.8); Hematocrit 36.8 % (36.0-46.0); Hemoglobin 12.5 g/dL (12.2-16.2); Lymphocytes # (auto) 0.8 10 ^3/uL (0.4-5.4); Lymphocytes % (auto) 32.9 % (10.0-50.0); Mean Corpuscular Hemoglobin 30.7 pg (28.0-32.0); Mean Corpuscular Hgb Conc. 33.9 g/dL (32.0-36.0); Mean Corpuscular Volume 90.6 fL (80.0-100.0); Monocytes # (auto) 0.3 10 ^3/uL (0-1.3); Monocytes % (auto) 10.3 % (0.0-12.0); Neutrophils # (auto) 1.2 10 ^3/uL (1.6-8.6); Neutrophils % (auto) 46.3 % (37.0-80.0); Nucleated Red Blood Cells % 0.2 %; Red Blood Cells 4.06 10^6/uL (4.0-5.20); Red Cell Distribution Width 14.9 % (11.8-14.3); White Blood Cell 2.5 10^3/uL (4.4-10.8)
[2023-04-03 06:42] LABS: Chloride 106 mmol/L (98-107); Potassium 3.5 mmol/L (3.5-5.1); Sodium 141 mmol/L (136-145)
[2023-04-03 06:43] LABS: Anion Gap 8 (5-15); Carbon Dioxide 27 mmol/L (20-30)
[2023-04-03 06:48] LABS: Glucose 83 mg/dL (74-106)
[2023-04-03 06:56] LABS: BUN/Creatinine Ratio 7.9 (10.0-20.0); Blood Urea Nitrogen < 5 mg/dL (9-23)
[2023-04-03] MEDS ORDERED: DOCUSATE SOD 100 MG CAP PO SCH (10:00)
[2023-04-03] MEDS: ENOXAPARIN SOD 60 MG/0.6 ML SYRINGE SC SCH (10:57)
[2023-04-03] MEDS: SODIUM CHLORIDE 0.9% 1,000 ML IV SCH (14:40)
[2023-04-03] MEDS ORDERED: APIX2.5T PO (15:58)
[2023-04-03] MEDS ORDERED: PANT40TA2 PO (15:58)
[2023-04-03] MEDS ORDERED: SENN-105 PO (15:58)
[2023-04-03] MEDS ORDERED: TRAM50TA2 PO (15:58)
[2023-04-03] MEDS ORDERED: SUCR1SUS26 PO (15:58)
== END 2023-04-03 18:04 | disposition home health service (06) | DRG 300 ==
LOC: ER 10:50 → TELE 21:34 → TELE-WESTW 03-30 01:10
PROVIDERS: ADMIT Nurse Practitioner Family; ATTEND Nurse Practitioner Family
DX: I82.402 Acute embolism and thrombosis of unspecified deep veins of left lower extremity (principal); N39.0 Urinary tract infection, site not specified; K59.00 Constipation, unspecified; E03.9 Hypothyroidism, unspecified; G89.29 Other chronic pain; M47.816 Spondylosis without myelopathy or radiculopathy, lumbar region; E78.5 Hyperlipidemia, unspecified; K21.9 Gastro-esophageal reflux disease without esophagitis; Z88.0 Allergy status to penicillin; Z88.5 Allergy status to narcotic agent; Z90.49 Acquired absence of other specified parts of digestive tract; Z85.830 Personal history of malignant neoplasm of bone; Z86.718 Personal history of other venous thrombosis and embolism; M19.09 Primary osteoarthritis, other specified site
CPT/HCPCS: 36415; 71045; 74177; 80048; 80053; 81001; 84439; 84443; 85025; 85610; 87086; 93005; 93970; 96360; 96361; 97110; 97116; 97163; 97530; C9113; G0378; J0696; J1885; J2405

== ENCOUNTER 2023-07-31 09:56 | Emergency (ER) | payer OTHER ==
[~2023-07-31] VITALS: Ht 152.4 cm; Wt 57.2 kg
[~2023-07-31 09:56] MED LIST changes: +APIX2.5T PO; -APIX5TAB PO; -CYCL-837 PO; -HYDR-4795 PO; +SUCR1SUS26 PO
[2023-07-31] MEDS ORDERED: NITROGLYCERIN 0.4 MG SL TAB SL ONE (10:45)
[2023-07-31 10:55] LABS: Basophils # (auto) 0 10 ^3/uL (0-0.2); Basophils % (auto) 1.1 % (0.0-2.0); Eosinophils # (auto) 0.1 10 ^3/uL (0-0.8); Eosinophils % (auto) 2.2 % (0.0-7.0); Hematocrit 42.7 % (36.0-46.0); Hemoglobin 13.8 g/dL (12.2-16.2); Lymphocytes # (auto) 1.4 10 ^3/uL (0.4-5.4); Lymphocytes % (auto) 32.4 % (10.0-50.0); Mean Corpuscular Hemoglobin 29.5 pg (28.0-32.0); Mean Corpuscular Hgb Conc. 32.3 g/dL (32.0-36.0); Mean Corpuscular Volume 91.3 fL (80.0-100.0); Monocytes # (auto) 0.2 10 ^3/uL (0-1.3); Monocytes % (auto) 5.7 % (0.0-12.0); Neutrophils # (auto) 2.5 10 ^3/uL (1.6-8.6); Neutrophils % (auto) 58.6 % (37.0-80.0); Red Blood Cells 4.68 10^6/uL (4.0-5.20); Red Cell Distribution Width 14.7 % (11.8-14.3); White Blood Cell 4.3 10^3/uL (4.4-10.8)
[2023-07-31 11:17] LABS: Alanine Aminotransferase 10 U/L (7-40); Albumin 3.7 g/dL (3.2-4.8); Alkaline Phosphatase 64 U/L (46-116); Anion Gap 5 (5-15); Aspartate Aminotransferase 23 U/L (13-40); Bilirubin, Total 0.8 mg/dL (0.2-1.0); Calcium 9.4 mg/dL (8.5-10.1); Carbon Dioxide 25 mmol/L (20-30); Chloride 110 mmol/L (98-107); Glucose 88 mg/dL (74-106); Potassium 3.8 mmol/L (3.5-5.1); Sodium 140 mmol/L (136-145); Total Protein 5.9 g/dL (5.7-8.2)
[2023-07-31 11:20] LABS: BUN/Creatinine Ratio 7.8 (10.0-20.0); Blood Urea Nitrogen < 5 mg/dL (9-23)
[2023-07-31 13:36] LABS: Urine Epithelial Cast None Seen /hpf (<5)
[2023-07-31] MEDS ORDERED: LABETALOL HCL 5 MG/ML 4ML SYRINGE IV ONE (13:45)
[2023-07-31] MEDS ORDERED: HYDROcodone-ACET 5/325MG TAB PO ONE (14:00)
[2023-07-31 14:01] VITALS: PULSE 80; RESP 18; O2SAT 95
[2023-07-31 14:04] LABS: Urine Bacteria NONE SEEN /hpf (None Seen); Urine Blood Negative /uL (Negative); Urine Clarity Clear (Clear); Urine Color Colorless (Yellow); Urine Protein, UAD Negative (Negative); Urine Specific Gravity 1.008 (1.001-1.035); Urine Urobilinogen Normal (Negative); Urine WBC 1 /hpf (0 - 5)
[2023-07-31 16:58] VITALS: BP 121/85; PULSE 78; RESP 17; TEMP 98; O2SAT 96
== END 2023-07-31 17:17 | disposition home or self-care (01) ==
LOC: ER 09:56
DX: I10 Essential (primary) hypertension (principal); E03.9 Hypothyroidism, unspecified; E78.5 Hyperlipidemia, unspecified; K21.9 Gastro-esophageal reflux disease without esophagitis; R07.89 Other chest pain; Z90.49 Acquired absence of other specified parts of digestive tract; Z79.899 Other long term (current) drug therapy; Z88.0 Allergy status to penicillin; Z88.5 Allergy status to narcotic agent; Z88.8 Allergy status to other drugs, medicaments and biological substances
CPT/HCPCS: 36415; 70450; 71045; 80053; 81001; 84484; 85025

== ENCOUNTER 2023-08-09 23:44 | Inpatient (IN) | payer OTHER ==
[~2023-08-09] VITALS: Ht 152.4 cm; Wt 54.0 kg
[2023-08-10] MEDS: ACETAMINOPHEN/CODEINE#3 (300/30mg) TAB PO ONE (00:45)
[2023-08-10 01:04] LABS: Basophils # (auto) 0 10 ^3/uL (0-0.2); Basophils % (auto) 0.5 % (0.0-2.0); Eosinophils # (auto) 0.2 10 ^3/uL (0-0.8); Eosinophils % (auto) 3.2 % (0.0-7.0); Hematocrit 42.7 % (36.0-46.0); Hemoglobin 14.1 g/dL (12.2-16.2); Lymphocytes # (auto) 0.4 10 ^3/uL (0.4-5.4); Lymphocytes % (auto) 5.4 % (10.0-50.0); Mean Corpuscular Hemoglobin 29.8 pg (28.0-32.0); Mean Corpuscular Volume 90.3 fL (80.0-100.0); Monocytes # (auto) 0.3 10 ^3/uL (0-1.3); Monocytes % (auto) 4.9 % (0.0-12.0); Neutrophils # (auto) 6.1 10 ^3/uL (1.6-8.6); Red Blood Cells 4.73 10^6/uL (4.0-5.20); White Blood Cell 7.1 10^3/uL (4.4-10.8)
[2023-08-10 01:41] LABS: Chloride 107 mmol/L (98-107); Potassium 3.9 mmol/L (3.5-5.1); Sodium 139 mmol/L (136-145)
[2023-08-10 01:42] LABS: Anion Gap 7 (5-15); Calcium 9.6 mg/dL (8.7-10.4); Carbon Dioxide 25 mmol/L (20-30)
[2023-08-10 01:47] LABS: Blood Urea Nitrogen 7 mg/dL (9-23); Glucose 102 mg/dL (74-106)
[2023-08-10 02:07] VITALS: PULSE 93; RESP 20; O2SAT 88
[2023-08-10 08:00] VITALS: PULSE 100; RESP 20; O2SAT 96
[2023-08-10] MEDS ORDERED: NITROGLYCERIN 0.4 MG SL TAB SL PRN (13:45)
[2023-08-10] MEDS ORDERED: HYDROcodone-ACET 5/325MG TAB PO PRN (13:45)
[2023-08-10] MEDS ORDERED: ONDANSETRON HCL 4 MG/2 ML VIAL IV PRN (13:45)
[2023-08-10] MEDS ORDERED: MORPHINE SULFATE INJ 2 MG/ml SYRG IV PRN ×2 (13:45)
[2023-08-10 15:09] LABS: Urine Bacteria NONE SEEN /hpf (None Seen); Urine Blood Negative /uL (Negative); Urine Clarity Clear (Clear); Urine Color Yellow (Yellow); Urine Mucus FEW (None Seen); Urine Protein, UAD TRACE (Negative); Urine Specific Gravity 1.018 (1.001-1.035); Urine Urobilinogen Normal (Negative); Urine WBC 64 /hpf (0 - 5); Urine pH 5.5 (5.0-8.0)
[2023-08-10] MEDS: SODIUM CHLORIDE 0.9% 1,000 ML IV SCH (16:15)
[2023-08-10 17:45] LABS: Folate (Folic Acid) 7.09 ng/mL (>5.38)
[2023-08-10] MEDS ORDERED: LORazepam 2MG/ML-1ML VIAL IV PRN (18:30)
[2023-08-10 18:48] VITALS: O2SAT 90
[2023-08-10 19:44] LABS: LDL Cholesterol 57 mg/dL (< 100); Triglycerides 71 mg/dL (< 150)
[2023-08-10 19:46] LABS: Cholesterol 107 mg/dL (< 200); HDL Cholesterol 39 mg/dL (40-59)
[2023-08-10 20:00] VITALS: PULSE 86
[2023-08-10] MEDS: levoFLOXacin 500MG 100 ML IV SCH (21:10)
[2023-08-10] MEDS: APIXABAN 2.5 MG TAB PO SCH (21:13)
[2023-08-10] MEDS: SUCRALFATE 1 GM/10 ML ORAL SUSP PO SCH (21:13)
[2023-08-10] MEDS: PANTOPRAZOLE 40 MG TAB PO SCH (21:13)
[2023-08-10] MEDS: SENNA 8.6 MG TAB PO SCH (21:13)
[2023-08-10] MEDS ORDERED: NITR-87 PO (21:31)
[2023-08-10] MEDS ORDERED: ACET300T58 PO (21:34)
[2023-08-10 22:00] VITALS: BP 164/94; PULSE 65; RESP 18; TEMP 98.4; O2SAT 90
[2023-08-11] VITALS (7 sets, daily range): BP systolic 95–122; BP diastolic 52–74; PULSE 57–93; RESP 17–20; TEMP 98.1–98.6; O2SAT 90–100
[2023-08-11 07:07] LABS: RPR Non Reactive (Non Reactive)
[2023-08-11] MEDS ORDERED: ENOXAPARIN SOD 40 MG/0.4 ML SYRINGE SC SCH (10:00)
[2023-08-11] MEDS: LEVOTHYROXINE SODIUM 25 MCG TAB PO SCH (10:01)
[2023-08-11] MEDS: ATORVASTATIN 20 MG TAB PO SCH (10:01)
[2023-08-12] VITALS (7 sets, daily range): BP systolic 121–137; BP diastolic 66–74; PULSE 57–97; RESP 16–20; TEMP 97.5–98.6; O2SAT 93–96
[2023-08-12] MEDS: ACETAMINOPHEN 325 MG TAB PO PRN (01:49)
[2023-08-12] MEDS: levoFLOXacin 250MG 50 ML IV SCH (09:22)
[2023-08-13 05:00] VITALS: BP 134/86; PULSE 82; RESP 17; TEMP 97.7; O2SAT 96
[2023-08-13 08:00] VITALS: PULSE 90; PULSE 92; RESP 18; O2SAT 95
[2023-08-13 08:51] LABS: Hepatitis B Surface Antigen Negative (Negative)
[2023-08-13 09:00] VITALS: BP 113/64; PULSE 87; RESP 18; TEMP 99; O2SAT 99
[2023-08-13 09:13] LABS: Hepatitis C Antibody Negative (Negative)
[2023-08-13 10:48] LABS: Basophils # (auto) 0.1 10 ^3/uL (0-0.2); Basophils % (auto) 1.3 % (0.0-2.0); Eosinophils # (auto) 0.2 10 ^3/uL (0-0.8); Eosinophils % (auto) 3.7 % (0.0-7.0); Hematocrit 35.8 % (36.0-46.0); Hemoglobin 12.2 g/dL (12.2-16.2); Lymphocytes # (auto) 1.1 10 ^3/uL (0.4-5.4); Mean Corpuscular Hgb Conc. 33.9 g/dL (32.0-36.0); Mean Corpuscular Volume 88.4 fL (80.0-100.0); Monocytes # (auto) 0.4 10 ^3/uL (0-1.3); Monocytes % (auto) 7.7 % (0.0-12.0); Neutrophils % (auto) 64.3 % (37.0-80.0); Red Blood Cells 4.05 10^6/uL (4.0-5.20); Red Cell Distribution Width 14.1 % (11.8-14.3); White Blood Cell 4.7 10^3/uL (4.4-10.8)
[2023-08-13 11:02] LABS: Chloride 108 mmol/L (98-107); Potassium 2.9 mmol/L (3.5-5.1); Sodium 141 mmol/L (136-145)
[2023-08-13 11:03] LABS: Anion Gap 8 (5-15); Carbon Dioxide 25 mmol/L (20-30)
[2023-08-13 11:04] LABS: Calcium 9.2 mg/dL (8.5-10.1)
[2023-08-13 11:08] LABS: BUN/Creatinine Ratio 11.1 (10.0-20.0); Blood Urea Nitrogen 7 mg/dL (9-23); Glucose 131 mg/dL (74-106)
[2023-08-13 13:00] VITALS: BP 122/74; PULSE 81; RESP 18; TEMP 98.1; O2SAT 95
[2023-08-13] MEDS ORDERED: LEVO250T58 PO (16:28)
[2023-08-13 17:15] VITALS: BP 116/70; PULSE 82; RESP 18; TEMP 98.7; O2SAT 97
[2023-08-13] MEDS ORDERED: ATORVASTATIN 20 MG TAB PO SCH (22:00)
== END 2023-08-13 18:20 | disposition home health service (06) | DRG 542 ==
LOC: ER 23:44 → TELE 08-10 13:41 → TELE-WESTW 08-10 18:33
PROVIDERS: ADMIT Internal Medicine; ATTEND Internal Medicine
PROC: 05HA33Z Insertion of Infusion Device into Left Brachial Vein, Percutaneous Approach (ICD-10-PCS; principal; 2023-08-13)
PROC: B54NZZA Ultrasonography of Left Upper Extremity Veins, Guidance (ICD-10-PCS; 2023-08-13)
DX: M48.54XA Collapsed vertebra, not elsewhere classified, thoracic region, initial encounter for fracture (principal); G93.41 Metabolic encephalopathy; N39.0 Urinary tract infection, site not specified; C43.9 Malignant melanoma of skin, unspecified; E03.9 Hypothyroidism, unspecified; E78.5 Hyperlipidemia, unspecified; K44.9 Diaphragmatic hernia without obstruction or gangrene; R62.7 Adult failure to thrive; F03.90 Unspecified dementia, unspecified severity, without behavioral disturbance, psychotic disturbance, mood disturbance, and anxiety; K21.9 Gastro-esophageal reflux disease without esophagitis; M47.814 Spondylosis without myelopathy or radiculopathy, thoracic region; I10 Essential (primary) hypertension; M51.36 Other intervertebral disc degeneration, lumbar region; Z79.01 Long term (current) use of anticoagulants; Z79.899 Other long term (current) drug therapy; Z85.820 Personal history of malignant melanoma of skin; Z86.718 Personal history of other venous thrombosis and embolism; Z86.73 Personal history of transient ischemic attack (TIA), and cerebral infarction without residual deficits; Z88.0 Allergy status to penicillin; Z92.21 Personal history of antineoplastic chemotherapy; Z88.5 Allergy status to narcotic agent; Z88.8 Allergy status to other drugs, medicaments and biological substances; Z68.23 Body mass index [BMI] 23.0-23.9, adult
CPT/HCPCS: 36415; 70450; 70551; 72125; 72128; 80048; 80061; 81001; 82607; 82746; 83605; 84439; 84443; 85025; 86592; 86803; 87081; 87086; 87340; 95819; 97110; 97163; 97530; G0378; J1956